=== PATIENT | female | born 1940 | race Hispanic/Latino ===

== ENCOUNTER 2017-08-06 09:53 | Day surgery (SDC) | payer MEDICARE, MEDICAID ==
[2017-08-05 15:03] VITALS: BMI 31.0
--- NOTE | 2017-08-06 06:08 | HP ---
DATE OF ADMISSION: 08/06/2017 HISTORY OF PRESENT ILLNESS: This is a 76-year-old female with chronic abdominal pain . The patient had been seeing me often on last 1 year. Initially, had an EGD done a few months ago and was negative. She was found to have gallstones and was referred to Dr. Rebel Camarillo. She underw ent surgery. Even after surgery, she was having the pain for several months. A subsequent CAT scan done revealed a left renal mass. She underwent left nephrectomy about a month ago at [facility]. The biopsy showed renal cell carcinoma. She had no metastatic disease. The patient j ust complain of abdominal pain. The pain is over the epigastric area. She had nausea. The pain is worse after meals. The patient comes in for an EGD because of the above reason. MEDICAL ILLNESSES: 1. Hypertension. 2. Hyperlipidemia. 3. Chronic anxiety, depression. 4. Degenerative joint disease. 5. Left nephrectomy for renal cell carcinoma. 6. Status post cholecystectomy. ALLERGIES: CEPHALEXIN. PHYSICAL EXAMINATION: VITAL SIGNS: Pulse is 70, blood pressure 120/70. HEENT: Conjunctivae are clear. CARDIOVASCULAR SYSTEM: First and second heart sounds normal. LUNGS: Clear to auscultation. ABDOMEN: Soft to palpate. Abdomen is tender over the epigastric area. There is no rebound or guar ding. No organomegaly or masses. ADMITTING DIAGNOSES: Abdominal pain, chronic in nature. The patient had an EGD several months ago, which was negative. She also had a laparoscopic cholecystectomy and left nephrectomy. Her pain is predominantly over the epigastric area. The patient comes for an EGD.
--- NOTE | 2017-08-06 13:53 | OP ---
DATE OF PROCEDURE: 08/06/2017 SURGEON: Rani Curry M.D. OPERATIVE PROCEDURE: Esophagogastroduodenoscopy. PREOPERATIVE DIAGNOSIS: This is a 76-year-old [place] female with persistent abdominal pain. She is status post laparoscopic cholecystectomy. She also had recent right nephrectomy for renal cell carcinoma. The patient continues to have abdominal pain which is predominantly over the epigastric area. POSTOPERATIVE DIAGNOSES: 1. Mild gastritis. 2. Otherwise, the exam was normal. PROCEDURE IN DETAIL: The patient was placed on her left lateral position and was given sedation by Anesthesia Department. A Pentax video gastroscope under direct vision was passed down the oropharynx, past the gastroesophageal junction , into the stomach and subsequently into the descending duodenum. The esophageal mucosa appeared normal. The GE junction, no pathology seen. Retroflexion failed to show any lesions in the fundus or cardia. The gastric body and gastric antrum showed mild mucosal hyperemia. The duodenal bulb and descending duodenum, no pathology seen. The stomach was decompressed and the scope removed. DISCHARGE PLANNING: This is a 76-year-old female who came in for EGD for abdominal pain, recurrent with mild gastritis, otherwise within normal limits. The patient had EGD at beginning of this year and laparoscopic cholecystectomy subsequently. She also had a nephrectomy a month ago. The patient underwent EGD because of abdominal pain. The EGD showed mild gastritis. DISCHARGE RECOMMENDATIONS: 1. The patient advised to continue all medications as before. 2. Consider trial of anti depressant because of chronic abdominal pain. MTDD
[2017-08-06] MEDS ORDERED: Lidocaine 1% PF 5 ML VIAL ONE (14:42)
[2017-08-06] MEDS ORDERED: Propofol 200 MG/20 ML VIAL ONE (14:42)
== END 2017-08-06 12:33 | disposition home or self-care (01) ==
LOC: SDC 09:53
PROVIDERS: ATTEND Internal Medicine Gastroenterology
PROC: 0DJ08ZZ Inspection of Upper Intestinal Tract, Via Natural or Artificial Opening Endoscopic (ICD-10-PCS; principal; 2017-08-06)
DX: K29.70 Gastritis, unspecified, without bleeding (principal); I10 Essential (primary) hypertension; E78.5 Hyperlipidemia, unspecified; F41.9 Anxiety disorder, unspecified; F32.9 Major depressive disorder, single episode, unspecified; M19.90 Unspecified osteoarthritis, unspecified site; Z88.1 Allergy status to other antibiotic agents; Z79.899 Other long term (current) drug therapy; Z98.1 Arthrodesis status; Z90.49 Acquired absence of other specified parts of digestive tract; Z90.5 Acquired absence of kidney; Z98.890 Other specified postprocedural states
CPT/HCPCS: J2001; J2704

== ENCOUNTER 2018-02-03 19:55 | Emergency (ER) | payer MEDICAID, MEDICARE ==
[2018-02-03] MEDS ORDERED: Acetaminophen 500 MG TAB ONE (20:46)
--- NOTE | 2018-02-03 21:05 | RAD ---
RIGHT FOREARM TWO VIEWS: HISTORY: Fall. Abrasions. COMPARISON: None. FINDINGS: Mild bone demineralization. No fracture. No cortical irregularity. No periosteal reactions. IMPRESSION: No fracture. POS: [facility]
[2018-02-03] MEDS ORDERED: Bacitracin Zinc 1 Packet ONE (21:06)
--- NOTE | 2018-02-03 21:08 | RAD ---
RIGHT HAND TWO VIEWS: HISTORY: Fall. Abrasion. COMPARISON: None. FINDINGS: There are degenerative changes involving the second digit distal interphalangeal joint space, as well as the fifth digit distal interphalangeal joint space. Mild bone demineralization. No fracture. IMPRESSION: No fracture. POS: [facility]
--- NOTE | 2018-02-03 21:36 | CT ---
NONCONTRAST HEAD CT: HISTORY: Trauma. Pain. The patient tripped and fell. COMPARISON: 01/19/2013 TECHNIQUE: A noncontrast head CT is performed from the skull base to the skull vertex. FINDINGS: No parenchymal hemorrhage. No extraaxial hematoma. No midline shift. Basilar cisterns are patent. Age appropriate atrophy. Cortical lara white matter differentiation is preserved. Ventricles and sulci are patent and symmetric. White matter hypodensities due to chronic small vessel ischemic changes are identified. Adequate aeration of the sinuses and mastoid air cells. Cavernous carotid atherosclerosis noted. Th e calvarium is intact. IMPRESSION: 1. No intracranial posttraumatic sequelae. 2. Age appropriate atrophy. 3. Chronic small vessel ischemic changes of the white matter. POS: [facility]
== END 2018-02-03 22:09 | disposition home or self-care (01) ==
LOC: ERS 19:55
DX: S63.501A Unspecified sprain of right wrist, initial encounter (principal); S00.31XA Abrasion of nose, initial encounter; S50.812A Abrasion of left forearm, initial encounter; I10 Essential (primary) hypertension; F32.9 Major depressive disorder, single episode, unspecified; W01.0XXA Fall on same level from slipping, tripping and stumbling without subsequent striking against object, initial encounter; Y92.481 Parking lot as the place of occurrence of the external cause
CPT/HCPCS: 70450

== ENCOUNTER 2018-03-17 14:34 | Outpatient (CLI) | payer MEDICARE | END 2018-03-17 14:35 | disposition home or self-care (01) | LOC: BICMAMMO 14:34 | PROVIDERS: ATTEND Family Medicine | DX: Z12.31 Encounter for screening mammogram for malignant neoplasm of breast (principal) | CPT/HCPCS: 77063; 77067 ==

== ENCOUNTER 2018-04-10 09:43 | Outpatient (CLI) | payer MEDICARE ==
[2018-04-10] MEDS ORDERED: ISOVUE-370 76%-LOCM 1 ML ONE (09:47)
== END 2018-04-10 09:44 | disposition home or self-care (01) ==
LOC: BICCT 09:43
PROVIDERS: ATTEND Internal Medicine Gastroenterology
DX: K30 Functional dyspepsia (principal); R10.84 Generalized abdominal pain; R14.0 Abdominal distension (gaseous); Z80.0 Family history of malignant neoplasm of digestive organs; I70.8 Atherosclerosis of other arteries; D35.01 Benign neoplasm of right adrenal gland; K57.30 Diverticulosis of large intestine without perforation or abscess without bleeding; Z90.49 Acquired absence of other specified parts of digestive tract; Z90.5 Acquired absence of kidney
CPT/HCPCS: 74174

== ENCOUNTER 2018-04-26 20:09 | Emergency (ER) | payer MEDICARE ==
[~2018-04-26 20:09] MED LIST: ISOVUE-370 76%-LOCM 1 ML ONE
[2018-04-26 20:42] LABS: #Eosinphils 0.2 thou/uL (0.0-0.7); #Lymphocytes 1.9 thou/uL (1.20-3.40); #Monocytes 0.5 thou/uL (0.11-0.59); #Neutrophils 2.3 thou/uL (1.40-6.50); %Basophils 0.4 % (0.0-1.0); %Eosinophils 4.4 % (0.0-10.0); %Lymphocytes 38.2 % (21.0-51.0); %Monocytes 9.7 % (0.0-10.0); %Neutrophils 47.3 % (42.0-75.0); Hemoglobin 12.6 g/dL (12.0-16.0); Mean Corpuscular HGB CONC 33.6 g/dL (32.0-36.0); Mean Corpuscular Hemoglobin 33.6 pg (27.0-31.0); Mean Corpuscular Volume 99.9 fL (78.0-98.0); Mean Platelet Volume 7.6 fL (7.4-10.4); Platelet Count 215 thou/uL (130-400); Red Blood Cell (RBC) Count 3.76 mill/uL (4.20-5.40); White Blood Cell (WBC) Count 4.8 thou/uL (4.8-10.8)
[2018-04-26] MEDS ORDERED: Lidocaine Viscous Sol 2% 15 ml UD Cup ONE (20:59)
[2018-04-26] MEDS ORDERED: Mag-Al 1200 mg/1200 mg/30 ML UDCUP ONE (20:59)
[2018-04-26 21:05] LABS: ALT (SGPT) 12 U/L (8-55); AST (SGOT) 23 U/L (5-34); Albumin 4.4 g/dL (3.4-4.8); Alkaline Phosphatase 94 U/L (40-150); Anion Gap 14 mmol/L (10-20); BUN (Urea Nitrogen) 16 mg/dL (9.8-20.1); Bilirubin, Total 0.4 mg/dL (0.2-1.2); CK (CPK) 52 U/L (29-168); Calc. Creatinine Clearance 0 mL/min (70-130); Calcium 9.6 mg/dL (7.8-10.44); Carbon Dioxide 25 mmol/L (23-31); Chloride 103 mmol/L (98-107); Estimated GFR-MDRD 44; Globulin 3.1 g/dL (2.4-3.5); Glucose 92 mg/dL (83-110); Potassium 4.5 mmol/L (3.5-5.1); Protein, Total 7.5 g/dL (6.0-8.3); Sodium 137 mmol/L (136-145)
[2018-04-26 21:26] LABS: CKMB 0.7 ng/mL (0-6.6); Troponin I Less than 0.010 ng/mL (< 0.028)
[2018-04-26] MEDS ORDERED: Dexamethasone 10 MG/ML VIAL ONE (22:37)
--- NOTE | 2018-04-27 08:58 | RAD ---
AP VIEW CHEST: 04/26/18 HISTORY: Shortness of breath. AP view chest is obtained on 04/26/18. Comparison made to previous exam from 05/31/17. AP view chest demonstrates the lungs to be well aerated. No evidence of active intrathoracic disease seen. No evidence of effusions, pneumonia or pneumothorax seen. IMPRESSION: Unremarkable AP view chest. POS: [facility]
--- NOTE | 2018-04-27 09:34 | CT ---
CONTRAST ENHANCED CT IMAGES SOFT TISSUE NECK: 04/26/18 HISTORY: Swallowing difficulties. Contrast enhanced CT of the soft tissue neck is obtained after administration of IV contrast. Mild right frontal sinus mucosal thickening is seen. The rest of the paranasal sinuses are well aerat ed. Mild left to right nasal septal deviation is seen. No definite evidence of soft tissue neck masses or lesions seen. The patient has a lower cervical ACD F. No evidence of prevertebral soft tissue swelling seen. No evidence of lymphadenopathy seen. Mild to moderate bilateral distal common and proximal internal carotid artery calcifications seen. Some minimal areas of calcifications seen in the right and left thyroid lobes. No definite evidence of pharyngeal mucosal lesions seen. There does appear to be some right to left vocal cord displacement. Correlate with direct visualizati on. IMPRESSION: Right to left vocal cord displacement possibly representing a right vocal cord mass or paralysis. Cor relate with direct visualization. POS: [facility]
== END 2018-04-26 22:46 | disposition home or self-care (01) ==
LOC: ERS 20:09
DX: J02.9 Acute pharyngitis, unspecified (principal); R13.10 Dysphagia, unspecified; I10 Essential (primary) hypertension; F32.9 Major depressive disorder, single episode, unspecified; Z79.899 Other long term (current) drug therapy
CPT/HCPCS: 70491; 71045; 80053; 82553; 84484; 85025; 93005; J1100

== ENCOUNTER 2018-05-07 10:28 | Outpatient (CLI) | payer MEDICARE ==
--- NOTE | 2018-05-08 10:58 | RAD ---
MODIFIED BARIUM SWALLOW: HISTORY: Dysphagia, pharyngoesophageal phase (R13.14). Feeding difficulties (R63.9). Other, IVC paralysis. COMPARISON: None. TECHNIQUE/FINDINGS: The exam was performed by the speech pathologist. The radiologist was not present. Multiple consist ency contrast was given by the speech pathologist. No aspiration or penetration. IMPRESSION: Fluoroscopy for the speech pathologist. Please see their report for detailed findings. POS: [facility]
== END 2018-05-07 10:29 | disposition home or self-care (01) ==
PROVIDERS: ATTEND Otolaryngology Plastic Surgery within the Head & Neck
DX: I69.891 Dysphagia following other cerebrovascular disease (principal); R13.14 Dysphagia, pharyngoesophageal phase; R63.3 Feeding difficulties; J38.01 Paralysis of vocal cords and larynx, unilateral
CPT/HCPCS: 74230; G8996-GN-CI; G8997-GN-CI; G8998-GN-CJ

== ENCOUNTER 2018-05-21 06:11 | Day surgery (SDC) | payer MEDICARE ==
[2018-05-20 15:14] VITALS: BMI 25.0
[2018-05-21] MEDS ORDERED: EPINEPHrine 1 MG/ML AMP ONE (06:44)
[2018-05-21 06:45] LABS: Hemoglobin 11.9 g/dL (12.0-16.0)
[2018-05-21 07:04] LABS: Anion Gap 13 mmol/L (10-20); BUN (Urea Nitrogen) 19 mg/dL (9.8-20.1); Calc. Creatinine Clearance 39 mL/min (70-130); Calcium 9.9 mg/dL (7.8-10.44); Carbon Dioxide 26 mmol/L (23-31); Chloride 105 mmol/L (98-107); Estimated GFR-MDRD 47; Glucose 94 mg/dL (83-110); Potassium 3.9 mmol/L (3.5-5.1); Sodium 140 mmol/L (136-145)
[2018-05-21] MEDS ORDERED: Midazolam HCl 2 mg/2 ml Vial ONE (08:02)
[2018-05-21] MEDS ORDERED: Fentanyl 100 MCG/2 ML VIAL ONE (08:02)
[2018-05-21] MEDS ORDERED: SUGAMMADEX SODIUM 200 MG/2 ML VIAL ONE (08:34)
[2018-05-21] MEDS ORDERED: Promethazine HCl 25 MG/ML VIAL ONE (09:50)
[2018-05-21] MEDS ORDERED: Ondansetron ODT 4 MG TAB ONE (12:05)
[2018-05-21] MEDS ORDERED: Dexamethasone 20 MG/5 ML VIAL ONE (13:08)
[2018-05-21] MEDS ORDERED: Glycopyrrolate 0.2 MG/ML 5 ML SYRINGE ONE (13:08)
[2018-05-21] MEDS ORDERED: Ondansetron HCl/PF 4 MG/2 ML Vial ONE (13:08)
--- NOTE | 2018-05-22 11:28 | OP ---
PREOPERATIVE DIAGNOSES: 1. Right true vocal cord paralysis. 2. Dysphonia. POSTOPERATIVE DIAGNOSES: 1. Right true vocal cord paralysis. 2. Dysphonia. PROCEDURES: 1. Microsuspension direct laryngoscopy. 2. Right true vocal cord Prolaryn laryngoplasty. SURGEON: Willie Melendez M.D. ESTIMATED BLOOD LOSS: 0 mL COMPLICATIONS: None. ANESTHESIA: GETA. PROCEDURE IN DETAIL: The patient taken to the operating room and placed supine on the table. Genera l endotracheal anesthesia was obtained using a Brittany jet ventilation tube. Following this, the sh oulder roll was gently placed. Great care was taken to protect the neck. The patient had previous a nterior cervical disk fusion surgery. Following this, the Dedo laryngoscope was introduced into the oral cavity and oral cavity and oropharynx were examined and showed no concerning mucosal lesions. F ollowing this, the piriform sinuses, vallecula and post-cricoid mucosa as well as the true vocal cord s and subglottic area were all visualized and were noted to be within normal limits. Following this, the patient was placed in suspension showing the true vocal cords and the airway. Following this, u sing the operating microscope with 400 mm lens Prolaryn Plus was used and it was guided under microsc opic guidance into just lateral to the thyroarytenoid muscle on the right true vocal cord, 0.3 mL of injection was made into 2 areas along this right true vocal cord. There is no swelling or hematoma. The patient tolerated the procedure well and was taken to recovery room in stable condition.
== END 2018-05-21 12:45 | disposition home or self-care (01) ==
LOC: SDC 06:11
PROVIDERS: ATTEND Otolaryngology Plastic Surgery within the Head & Neck
PROC: 0CQ Mouth and Throat, Repair (ICD-10-PCS; principal; 2018-05-21)
DX: J38.01 Paralysis of vocal cords and larynx, unilateral (principal); I10 Essential (primary) hypertension; E78.00 Pure hypercholesterolemia, unspecified; D64.9 Anemia, unspecified; K21.9 Gastro-esophageal reflux disease without esophagitis; Z79.82 Long term (current) use of aspirin; Z79.899 Other long term (current) drug therapy; Z88.1 Allergy status to other antibiotic agents
CPT/HCPCS: 36415; 80048; 85014; 85018; 93005; 93010; 96374; J0171; J1100; J2250; J2405; J2550; J3010; Q0162

== ENCOUNTER 2018-09-10 09:43 | Outpatient (CLI) | payer MEDICARE ==
--- NOTE | 2018-09-10 13:42 | MRI ---
MRI BRAIN WITHOUT CONTRAST: Date: 09/10/18 HISTORY: Headache. FINDINGS: Comparison made with exam of 07/28/15. Changes of chronic small vessel ischemic disease are again seen in the periventricular and subcortica l white matter. The ventricular size is appropriate and the basilar cisterns are patent. No restricte d diffusion is seen. No evidence of infarct, hemorrhage, midline shift, or abnormal extra-axial fluid collections is noted. There is mild mucosal disease in the paranasal sinuses. IMPRESSION: Extensive chronic small vessel ischemic disease. No evidence of acute intracranial process. POS: [facility]
== END 2018-09-10 09:44 | disposition home or self-care (01) ==
LOC: BICMRI 09:43
PROVIDERS: ATTEND Family Medicine
DX: R51 Headache (principal); I67.9 Cerebrovascular disease, unspecified
CPT/HCPCS: 70551

== ENCOUNTER 2018-10-16 14:38 | Outpatient (CLI) | payer MEDICARE ==
--- NOTE | 2018-10-16 17:32 | MRI ---
MRI CERVICAL SPINE: 10/16/2018 HISTORY: Cervical pain with radiation to the back of the head. Cervical stenosis of the spinal canal. COMPARISON: 09/26/2015 TECHNIQUE: Multiplanar, multisequence MR imaging of the cervical spine obtained without contrast. FINDINGS: Since the prior examination, there has been placement of anterior diskectomy and fusion hardware at C 4-C5 and C5-C6. Associated artifact from this hardware limits detailed assessment. There is no significant anterolisthesis or retrolisthesis present. No focal prevertebral soft tissue abnormality. Stable mild degenerative change at the atlantoaxial interspace present. C2-C3: Mild left-sided facet hypertrophy noted. No significant central canal or neural foraminal st enosis. C3-C4: There is a stable central disk protrusion effacing the ventral thecal sac and abutting the ve ntral aspect of the cord with mild stable central canal stenosis. Stable bilateral mild facet and un covertebral osteophyte formation. No significant neural foraminal stenosis noted on either side. C4-C5: Evaluation is limited secondary to streak artifact from hardware. No obvious central canal s tenosis or severe neural foraminal stenosis. C5-C6: Evaluation limited secondary to artifact from hardware. Probable mild bilateral neural aditya inal stenosis. No obvious central canal stenosis. C6-C7: There is disk space narrowing, disk desiccation, and mild disk bulge with mild central canal stenosis. Probable bilateral mild/moderate neural foraminal stenosis, left greater than right, limit ed in assessment on the basis of hardware artifact. C7-T1: Bilateral facet hypertrophy noted, left greater than right. Moderate left and mild right belgica ral foraminal stenosis. Minimal disk bulge present with no significant central canal stenosis. No focal area of signal abnormality is identified within the cervical cord. The sagittal STIR imaging demonstrates no focal area of osseous marrow edema. IMPRESSION: Postoperative and degenerative change noted within the cervical spine, not optimally assessed on this examination secondary to streak artifact from the above described hardware. CT myelogram of the cer vical spine may be beneficial. POS: [facility]
== END 2018-10-16 14:39 | disposition home or self-care (01) ==
LOC: BICMRI 14:38
PROVIDERS: ATTEND Nurse Practitioner Family
DX: M48.02 Spinal stenosis, cervical region (principal); M47.812 Spondylosis without myelopathy or radiculopathy, cervical region; Z98.890 Other specified postprocedural states
CPT/HCPCS: 72141

== ENCOUNTER 2018-11-04 13:02 | Outpatient (CLI) | payer MEDICARE ==
--- NOTE | 2018-11-04 15:02 | ULT ---
BILATERAL LOWER EXTREMITY ARTERIAL DOPPLER EXAMINATION: HISTORY: Peripheral artery disease. Atherosclerosis. FINDINGS: RIGHT SIDE PEAK SYSTOLIC VELOCITY COMMON FEMORAL ARTERY 101 cm per second PROFUNDA FEMORAL ARTERY: 69 cm per second PROXIMAL SUPERFICIAL FEMORAL ARTERY: 100 cm per second MID: 113 cm per second DISTAL SUPERFICIAL FEMORAL ARTERY: 107 cm per second POPLITEAL: 77 cm per second ANTERIOR TIBIAL: 61 cm per second POSTERIOR TIBIAL: 50 cm per second DORSALIS PEDIS: 77 cm per second LEFT SIDE PEAK SYSTOLIC VELOCITY COMMON FEMORAL ARTERY 96 cm per second PROFUNDA FEMORAL ARTERY: 67 cm per second PROXIMAL SUPERFICIAL FEMORAL ARTERY: 83 cm per second MID: 119 cm per second DISTAL SUPERFICIAL FEMORAL ARTERY 82 cm per second POPLITEAL: 78 cm per second ANTERIOR TIBIAL: 90 cm per second POSTERIOR TIBIAL: 54 cm per second DORSALIS PEDIS: 62 cm per second IMPRESSION: Findings that suggest a mild to moderate area of narrowing of the junction of the distal superficial femoral artery and popliteal artery on the right, and mild to moderate narrowing of the mid to distal superficial femoral artery on the left. POS: [facility]
== END 2018-11-04 13:03 | disposition home or self-care (01) ==
LOC: ULT 13:02
PROVIDERS: ATTEND Family Medicine
DX: I70.203 Unspecified atherosclerosis of native arteries of extremities, bilateral legs (principal)
CPT/HCPCS: 93923

== ENCOUNTER 2019-05-13 12:58 | Outpatient (CLI) | payer MEDICARE ==
--- NOTE | 2019-05-13 15:14 | MRI ---
MRI OF RIGHT KNEE PERFORMED WITHOUT CONTRAST ENHANCEMENT: 05/13/19 HISTORY: Medial knee pain. No history of previous surgery. The anterior as well as posterior cruciate ligaments are intact. There is increased signal change within the posterior horn and body region of the medial meniscus com patible with internal mucoid degeneration. I do not see a definitive articular surface tear. The late ral meniscus shows less pronounced changes but again with some mucoid degeneration. The junction of t he anterior horn and body region of the lateral meniscus is somewhat truncated in appearance but this can be an area of some moderate variability. The medial and lateral collateral ligaments and iliotibial band regions are unremarkable. The patella r articular cartilage is intact. The medial and lateral patellar retinaculum and quadriceps and santiago lar tendons are normal. There is a small joint effusion seen. IMPRESSION: No evidence of any meniscal or cruciate ligament injury. POS: [facility]
== END 2019-05-13 12:59 | disposition home or self-care (01) ==
LOC: BICMRI 12:58
PROVIDERS: ATTEND Orthopaedic Surgery
DX: S83.241A Other tear of medial meniscus, current injury, right knee, initial encounter (principal)

== ENCOUNTER 2019-09-15 12:19 | Outpatient (CLI) | payer MEDICARE ==
--- NOTE | 2019-09-15 12:57 | MMO ---
Bilateral MAMMO Bilat Screen [facility]. CLINICAL HISTORY: Patient is 78 years old and is seen for screening. The patient has no family history of breast cancer. The patient has no personal history of cancer. VIEWS: The views performed were: bilateral craniocaudal with tomosynthesis and bilateral mediolateral oblique with tomosynthesis. FILMS COMPARED: The present examination has been compared to prior imaging studies performed at [facility] on 12/08/2013, 12/27/2014, 03/13/2017 and 03/17/2018. This study has been interpreted with the assistance of computer-aided detection. MAMMOGRAM FINDINGS: There are scattered fibroglandular densities. There are stable benign appearing calcifications seen in both breasts. There are also vascular calcifications. There are no suspicious masses, suspicious calcifications, or new areas of architectural distortion. IMPRESSION: THERE IS NO MAMMOGRAPHIC EVIDENCE OF MALIGNANCY. A ROUTINE FOLLOW-UP MAMMOGRAM IN 1 YEAR IS RECOMMENDED. THE RESULTS OF THIS EXAM WERE SENT TO THE PATIENT. ACR BI-RADS Category 2 - Benign finding MAMMOGRAPHY NOTE: 1. A negative mammogram report should not delay a biopsy if a dominant of clinically suspicious mass is present. 2. Approximately 10% to 15% of breast cancers are not detected by mammography. 3. Adenosis and dense breasts may obscure an underlying neoplasm. Reported by: JANUSZ RODRIGUEZ MD Electonically Signed: [id number]
== END 2019-09-15 12:20 | disposition home or self-care (01) ==
LOC: BICMAMMO 12:19
PROVIDERS: ATTEND Specialist
DX: Z12.31 Encounter for screening mammogram for malignant neoplasm of breast (principal)
CPT/HCPCS: 77063; 77067

== ENCOUNTER 2020-08-01 11:55 | Outpatient (CLI) | payer MEDICARE ==
--- NOTE | 2020-08-01 12:15 | RAD ---
EXAM: 4 views of the right knee HISTORY: Knee pain COMPARISON: None FINDINGS: No knee effusion is seen. There is no evidence of acute fracture or dislocation. No signifi cant degenerative changes are seen. No soft tissue swelling is present. IMPRESSION: No evidence of acute osseous abnormality.
== END 2020-08-01 11:56 | disposition home or self-care (01) ==
LOC: BICRAD 11:55
PROVIDERS: ATTEND Specialist
DX: M25.561 Pain in right knee (principal)

== ENCOUNTER 2021-03-06 14:48 | Outpatient (CLI) | payer MEDICARE | END 2021-03-06 14:49 | disposition home or self-care (01) | LOC: BICRAD 14:48 | PROVIDERS: ATTEND Internal Medicine Cardiovascular Disease | DX: R07.9 Chest pain, unspecified (principal) | CPT/HCPCS: 71046 ==

== ENCOUNTER 2022-06-10 17:29 | Inpatient (IN) | payer MEDICARE ==
[~2022-06-10 17:29] MED LIST changes: -ISOVUE-370 76%-LOCM 1 ML ONE; +Iopamidol-370 76% 500 ML 1 ML ONE
[2022-06-10 18:32] LABS: #Eosinphils 0.1 thou/uL (0.0-0.7); #Lymphocytes 2.1 thou/uL (1.20-3.40); #Monocytes 0.7 thou/uL (0.11-0.59); #Neutrophils 4.1 thou/uL (1.40-6.50); %Basophils 0.2 % (0.0-1.0); %Eosinophils 1.5 % (0.0-10.0); %Monocytes 9.5 % (0.0-10.0); %Neutrophils 58.8 % (42.0-75.0); Hemoglobin 10.6 g/dL (12.0-16.0); Mean Corpuscular HGB CONC 33.3 g/dL (32.0-36.0); Mean Corpuscular Hemoglobin 33.4 pg (27.0-31.0); Mean Platelet Volume 8.8 fL (7.4-10.4); Platelet Count 237 thou/uL (130-400); RBC Distribution Width 14.1 % (11.5-14.5); Red Blood Cell (RBC) Count 3.17 mill/uL (4.20-5.40)
[2022-06-10 18:52] LABS: ALT (SGPT) 11 U/L (8-55); AST (SGOT) 19 U/L (5-34); Albumin 4.4 g/dL (3.4-4.8); Alkaline Phosphatase 71 U/L (40-110); Anion Gap 17 mmol/L (10-20); BUN (Urea Nitrogen) 20 mg/dL (9.8-20.1); Bilirubin, Total 0.6 mg/dL (0.2-1.2); CK (CPK) 53 U/L (29-168); Calc. Creatinine Clearance 0 mL/min (70-130); Calcium 9.3 mg/dL (7.8-10.44); Carbon Dioxide 19 mmol/L (23-31); Chloride 107 mmol/L (98-107); Estimated GFR 46; Glucose 93 mg/dL (83-110); Lipase 39 U/L (8-78); Potassium 4.1 mmol/L (3.5-5.1); Protein, Total 7.4 g/dL (5.8-8.1); Sodium 139 mmol/L (136-145)
[2022-06-10 19:02] LABS: Bilirubin Negative (Negative); Blood, Urine Negative (Negative); Clarity Clear (Clear); Glucose, Urine (Dipstick) Normal (Negative); Ketone, Urine Negative (Negative); Leukocyte Negative Leu/uL (Negative); Nitrite Negative (Negative); Protein, Urine (Dipstick) 10 mg/dL (Neg-Trace); Specific Gravity, Urine 1.006 (1.002-1.036); Urobilinogen Normal mg/dL (Less than 2)
[2022-06-10] MEDS ORDERED: Morphine 4 MG/ML VIAL ONE (21:43)
[2022-06-10] MEDS ORDERED: Ketorolac Tromethamine 30 MG/ML VIAL ONE (21:43)
[2022-06-10] MEDS ORDERED: Ondansetron PF 4 MG/2 ML Vial ONE (21:43)
[2022-06-10 22:41] LABS: Troponin I 0.505 ng/mL (< 0.028)
[2022-06-10] MEDS ORDERED: Aspirin 325 mg Enteric Coated Tablet PO SCH (22:45)
[2022-06-11 01:12] VITALS: BMI 25.5
[2022-06-11 05:23] LABS: Critical Call Chem Troponin I RESULT DECREASING; Troponin I 0.485 ng/mL (< 0.028)
[2022-06-11] MEDS ORDERED: Nitroglycerin 0.4 MG TAB (25 Tab Bottle) SL PRN (07:39)
[2022-06-11] MEDS ORDERED: Aspirin 325 MG TAB PO SCH (07:45)
[2022-06-11] MEDS: Sodium Chloride 0.9% 1,000 ML IV SCH (08:47)
[2022-06-11] MEDS: cloNIDine 0.1 MG TAB PO SCH ×2 (08:47→21:00)
[2022-06-11 12:11] LABS: Anion Gap 14 mmol/L (10-20); BUN (Urea Nitrogen) 20 mg/dL (9.8-20.1); Calc. Creatinine Clearance 36 mL/min (70-130); Calcium 9.2 mg/dL (7.8-10.44); Carbon Dioxide 20 mmol/L (23-31); Chloride 109 mmol/L (98-107); Estimated GFR 50; Glucose 85 mg/dL (83-110); Potassium 4.5 mmol/L (3.5-5.1); Sodium 138 mmol/L (136-145)
[2022-06-11] MEDS: Nitroglycerin 2% Ointment 1 INCH/1 GM Packet TOP SCH ×2 (13:13→21:19)
[2022-06-11] MEDS ORDERED: Acetaminophen 325 MG TAB PO PRN (19:44)
[2022-06-11] MEDS ORDERED: Rosuvastatin 20 MG TAB PO SCH (21:00)
[2022-06-12] MEDS: Sodium Chloride 0.9% 1,000 ML IV SCH ×2 (01:45→09:04)
[2022-06-12 05:19] LABS: #Eosinphils 0.1 thou/uL (0.0-0.7); #Lymphocytes 1.6 thou/uL (1.20-3.40); #Monocytes 0.7 thou/uL (0.11-0.59); %Basophils 0.3 % (0.0-1.0); %Eosinophils 2.1 % (0.0-10.0); %Lymphocytes 29.6 % (21.0-51.0); %Monocytes 12.6 % (0.0-10.0); %Neutrophils 55.4 % (42.0-75.0); Hemoglobin 9.5 g/dL (12.0-16.0); Mean Corpuscular Hemoglobin 31.8 pg (27.0-31.0); Mean Corpuscular Volume 99.4 fL (78.0-98.0); Mean Platelet Volume 8.8 fL (7.4-10.4); Platelet Count 209 thou/uL (130-400); RBC Distribution Width 14.1 % (11.5-14.5); Red Blood Cell (RBC) Count 2.99 mill/uL (4.20-5.40); White Blood Cell (WBC) Count 5.4 thou/uL (4.8-10.8)
[2022-06-12 05:37] LABS: Anion Gap 14 mmol/L (10-20); BUN (Urea Nitrogen) 26 mg/dL (9.8-20.1); Calc. Creatinine Clearance 38 mL/min (70-130); Calcium 8.5 mg/dL (7.8-10.44); Carbon Dioxide 16 mmol/L (23-31); Chloride 112 mmol/L (98-107); Estimated GFR 54; Glucose 79 mg/dL (83-110); Potassium 3.9 mmol/L (3.5-5.1); Sodium 138 mmol/L (136-145)
[2022-06-12] MEDS: Nitroglycerin 2% Ointment 1 INCH/1 GM Packet TOP SCH (07:25)
[2022-06-12 08:22] VITALS: TEMP 98.3
[2022-06-12 08:53] LABS: Cardiac Risk 2.8 (Less than 4.5)
[2022-06-12] MEDS ORDERED: Aspirin 325 MG TAB PO SCH (09:00)
[2022-06-12] MEDS ORDERED: Docusate Calcium (SURFAK) 240 MG CAP PO SCH ×2 (11:30→21:00)
[2022-06-12 11:48] VITALS: BP 156/69
== END 2022-06-12 15:09 | disposition home health service (06) | DRG 281 ==
LOC: ERS 17:29 → 2SW 20:24 → OBSVTOIN 06-11 08:07
PROVIDERS: ADMIT Specialist; ATTEND Specialist
DX: I21.4 Non-ST elevation (NSTEMI) myocardial infarction (principal); I13.0 Hypertensive heart and chronic kidney disease with heart failure and stage 1 through stage 4 chronic kidney disease, or unspecified chronic kidney disease; Z20.822 Contact with and (suspected) exposure to COVID-19; F03.90 Unspecified dementia, unspecified severity, without behavioral disturbance, psychotic disturbance, mood disturbance, and anxiety; E78.5 Hyperlipidemia, unspecified; N18.30 Chronic kidney disease, stage 3 unspecified; D63.1 Anemia in chronic kidney disease; F32.A Depression, unspecified; I50.9 Heart failure, unspecified; Z88.1 Allergy status to other antibiotic agents; Z90.49 Acquired absence of other specified parts of digestive tract
CPT/HCPCS: 36415; 71045; 71275; 80048; 80053; 80061; 81003; 82550; 83690; 83735; 83880; 84443; 84484; 85025; 85379; 93005; 93010; 93306; G0378; J1885; J2270; J2405; J7050; Q9967; U0003; U0005

== ENCOUNTER 2022-08-16 08:55 | Outpatient (CLI) | payer MEDICARE | END 2022-08-16 08:56 | disposition home or self-care (01) | LOC: SCSMRI 08:55 | PROVIDERS: ATTEND Specialist | DX: M54.2 Cervicalgia (principal); M26.602 Left temporomandibular joint disorder, unspecified; M26.643 Arthritis of bilateral temporomandibular joint; S03.03XA Dislocation of jaw, bilateral, initial encounter; M48.02 Spinal stenosis, cervical region; M48.03 Spinal stenosis, cervicothoracic region | CPT/HCPCS: 70336; 72141 ==

== ENCOUNTER 2023-07-03 14:23 | Outpatient (CLI) | payer MEDICARE | END 2023-07-03 14:24 | disposition home or self-care (01) | LOC: BICRAD 14:23 | PROVIDERS: ATTEND Physician Assistant Medical | DX: D50.9 Iron deficiency anemia, unspecified (principal); R10.9 Unspecified abdominal pain; K59.00 Constipation, unspecified; R14.3 Flatulence | CPT/HCPCS: 74019 ==

== ENCOUNTER 2024-08-11 17:32 | Inpatient (IN) | payer MEDICARE ==
[~2024-08-11 17:32] MED LIST changes: -Iopamidol-370 76% 500 ML 1 ML ONE; +Iopamidol-370 76% 500 ML MDV (1 ML CHARGE) ONE
[2024-08-11 18:01] LABS: #Basophils Less than 0.03 10x3/uL (0.0-0.2); #Eosinophils Less than 0.03 10x3/uL (0.0-0.7); %Basophils 0.2 % (0.0-1.0); %Eosinophils 0.1 % (0.0-10.0); %Lymphocytes 8.1 % (21.0-51.0); %Monocytes 8.4 % (0.0-10.0); %Neutrophils 82.7 % (42.0-75.0); Hematocrit 41.5 % (36.0-47.0); Hemoglobin 13.8 g/dL (12.0-16.0); Mean Corpuscular HGB CONC 33.3 g/dL (32.0-36.0); Mean Corpuscular Hemoglobin 34.5 pg (27.0-31.0); Mean Corpuscular Volume 103.8 fL (78.0-98.0); Mean Platelet Volume 10.6 fL (7.4-10.4); Platelet Count 220 10x3/uL (130-400); RBC Distribution Width 13.5 % (11.5-14.5)
[2024-08-11 18:19] LABS: CK (CPK) 336 U/L (29-168); Magnesium 2.2 mg/dL (1.6-2.6)
[2024-08-11 18:22] LABS: INR-International Normal Ratio 1.1; PTT 26.4 sec (22.9-36.1); Prothrombin Time 14.3 sec (12.0-14.7)
[2024-08-11 18:25] LABS: Troponin I 0.132 ng/mL (< 0.028)
[2024-08-11 18:27] LABS: ALT (SGPT) 18 U/L (8-55); AST (SGOT) 39 U/L (5-34); Albumin 3.9 g/dL (3.4-4.8); Alkaline Phosphatase 74 U/L (40-110); Anion Gap 15 mmol/L (10-20); BUN (Urea Nitrogen) 26 mg/dL (9.8-20.1); Bilirubin, Total 1.1 mg/dL (0.2-1.2); Calc. Creatinine Clearance 0 mL/min (70-130); Calcium 9.8 mg/dL (7.8-10.44); Carbon Dioxide 19 mmol/L (23-31); Chloride 102 mmol/L (98-107); Estimated GFR 43; Globulin 3.7 g/dL (2.4-3.5); Glucose 118 mg/dL (83-110); Potassium 4.4 mmol/L (3.5-5.1); Protein, Total 7.6 g/dL (5.8-8.1); Sodium 132 mmol/L (136-145)
[2024-08-11 18:49] LABS: Bacteria/HPF None Seen HPF (None Seen); Bilirubin Negative (Negative); Blood, Urine Negative (Negative); CAUTI Indications for Culture Alt mental st,lethar; Clarity Clear (Clear); Glucose, Urine (Dipstick) Normal (Negative); Ketone, Urine Negative (Negative); Leukocyte Negative Leu/uL (Negative); Nitrite Negative (Negative); Protein, Urine (Dipstick) 70 mg/dL (Neg-Trace); RBC/HPF 0-3 HPF (0-3); Squamous Epithelial None Seen HPF (0-3); Urobilinogen Normal mg/dL (Less than 2); WBC/HPF 0-3 HPF (0-3); pH, Urine 5.5 (5.0-9.0)
[2024-08-11 18:53] LABS: Urine Culture Reflex No No
[2024-08-11] MEDS ORDERED: Aspirin Chewable 81 MG TAB ONE (19:09)
[2024-08-11 21:00] LABS: Lactic Acid 3.57 mmol/L (0.5-2.2)
[2024-08-11] MEDS ORDERED: Glucagon 1 MG/ML KIT IM PRN (21:07)
[2024-08-11] MEDS ORDERED: Ipratropium/Albuterol 3 ML NEB NEB PRN (21:07)
[2024-08-11] MEDS ORDERED: Morphine 2 MG/ML VIAL SLOW IVP PRN (21:07)
[2024-08-11] MEDS ORDERED: Dextrose 50% Abboject 50 ML SYRINGE SLOW IVP PRN (21:07)
[2024-08-11] MEDS ORDERED: traMADol HCl 50 MG TAB PO PRN (21:07)
[2024-08-11] MEDS ORDERED: Acetaminophen 325 MG TAB PO PRN (21:07)
[2024-08-11] MEDS ORDERED: hydrALAZINE 20 MG/ML VIAL SLOW IVP PRN (21:07)
[2024-08-11] MEDS ORDERED: Dextrose 5% in Water 1,000 ML IV PRN (21:07)
[2024-08-11] MEDS ORDERED: Rib Fracture Protocol PO SCH (21:15)
[2024-08-11] MEDS ORDERED: Cyclobenzaprine 10 MG TAB PO PRN (22:00)
[2024-08-12] MEDS: Ipratropium/Albuterol 3 ML NEB NEB SCH (02:22)
[2024-08-12 03:11] VITALS: BMI 27.4
[2024-08-12] MEDS: Lactated Ringer's 1,000 ML IV SCH (03:20)
[2024-08-12 04:48] LABS: #Basophils 0.03 10x3/uL (0.0-0.2); #Eosinophils Less than 0.03 10x3/uL (0.0-0.7); %Basophils 0.3 % (0.0-1.0); %Eosinophils 0.2 % (0.0-10.0); %Lymphocytes 14.6 % (21.0-51.0); %Monocytes 12.4 % (0.0-10.0); %Neutrophils 72.1 % (42.0-75.0); Hemoglobin 11.9 g/dL (12.0-16.0); Mean Corpuscular HGB CONC 33.1 g/dL (32.0-36.0); Mean Corpuscular Hemoglobin 34.2 pg (27.0-31.0); Mean Corpuscular Volume 103.4 fL (78.0-98.0); Mean Platelet Volume 10.9 fL (7.4-10.4); Platelet Count 178 10x3/uL (130-400); RBC Distribution Width 13.7 % (11.5-14.5); Red Blood Cell (RBC) Count 3.48 mill/uL (4.20-5.40)
[2024-08-12 04:57] LABS: Anion Gap 15 mmol/L (10-20); BUN (Urea Nitrogen) 25 mg/dL (9.8-20.1); Calc. Creatinine Clearance 37 mL/min (70-130); Carbon Dioxide 18 mmol/L (23-31); Chloride 104 mmol/L (98-107); Estimated GFR 52; Glucose 110 mg/dL (83-110); Potassium 4.5 mmol/L (3.5-5.1); Sodium 132 mmol/L (136-145)
[2024-08-12] MEDS: traMADol HCl 50 MG TAB PO SCH (05:06)
[2024-08-12] MEDS: Ibuprofen 200 MG TAB PO SCH (06:24)
[2024-08-12] MEDS: Acetaminophen 500 MG TAB PO SCH (06:26)
[2024-08-12 08:33] LABS: Troponin I 0.101 ng/mL (< 0.028)
[2024-08-12] MEDS: Pantoprazole DR 40 MG TAB PO SCH (08:50)
[2024-08-12] MEDS: Enoxaparin 30 MG (0.3 mL) SYRINGE SC SCH (08:50)
[2024-08-12] MEDS: Gabapentin 100 MG CAP PO SCH (08:50)
[2024-08-12] MEDS: Rosuvastatin 20 MG TAB PO SCH (08:50)
[2024-08-12] MEDS: Ondansetron ODT 4 MG TAB PO PRN (12:58)
[2024-08-12] MEDS ORDERED: Methocarbamol 500 MG TAB PO PRN (15:53)
[2024-08-12] MEDS: traMADol HCl 50 MG TAB PO PRN (18:05)
[2024-08-12] MEDS ORDERED: traMADol HCl 50 MG TAB PO SCH (21:00)
[2024-08-13 04:41] LABS: #Basophils Less than 0.03 10x3/uL (0.0-0.2); %Basophils 0.2 % (0.0-1.0); %Eosinophils 0.7 % (0.0-10.0); %Lymphocytes 19.8 % (21.0-51.0); %Monocytes 13.3 % (0.0-10.0); %Neutrophils 65.6 % (42.0-75.0); Hematocrit 28.7 % (36.0-47.0); Hemoglobin 9.5 g/dL (12.0-16.0); Mean Corpuscular HGB CONC 33.1 g/dL (32.0-36.0); Mean Corpuscular Hemoglobin 35.3 pg (27.0-31.0); Mean Corpuscular Volume 106.7 fL (78.0-98.0); Mean Platelet Volume 10.7 fL (7.4-10.4); Platelet Count 165 10x3/uL (130-400); RBC Distribution Width 13.8 % (11.5-14.5); Red Blood Cell (RBC) Count 2.69 mill/uL (4.20-5.40)
[2024-08-13 04:52] LABS: Anion Gap 13 mmol/L (10-20); BUN (Urea Nitrogen) 22 mg/dL (9.8-20.1); Calc. Creatinine Clearance 34 mL/min (70-130); Calcium 8.6 mg/dL (7.8-10.44); Carbon Dioxide 21 mmol/L (23-31); Chloride 106 mmol/L (98-107); Estimated GFR 45; Glucose 110 mg/dL (83-110); Potassium 4.5 mmol/L (3.5-5.1); Sodium 135 mmol/L (136-145)
[2024-08-13] MEDS ORDERED: Labetalol HCl 100 MG/20 ML VIAL SLOW IVP PRN (17:02)
[2024-08-13] MEDS: Lactated Ringer's 1,000 ML IV SCH (17:32)
[2024-08-13] MEDS ORDERED: Multivit, Therapeutic 1 TAB PO SCH (21:00)
[2024-08-13] MEDS: Bisacodyl 10 MG SUPP PR SCH (21:56)
[2024-08-13] MEDS: Senokot S 8.6-50 MG TAB PO SCH (21:58)
[2024-08-13] MEDS: Multivit, Therapeutic 1 TAB PO SCH (21:58)
[2024-08-14] MEDS: Polyethylene Glycol 3350 17 GM Packet PO SCH (08:37)
[2024-08-14] MEDS: Methylcellulose 500 MG TAB PO SCH (08:41)
[2024-08-14 10:00] LABS: Anion Gap 11 mmol/L (10-20); BUN (Urea Nitrogen) 14 mg/dL (9.8-20.1); Calc. Creatinine Clearance 37 mL/min (70-130); Calcium 8.7 mg/dL (7.8-10.44); Carbon Dioxide 23 mmol/L (23-31); Chloride 109 mmol/L (98-107); Estimated GFR 55; Glucose 112 mg/dL (83-110); Sodium 139 mmol/L (136-145)
[2024-08-14 10:01] LABS: #Basophils Less than 0.03 10x3/uL (0.0-0.2); %Basophils 0.3 % (0.0-1.0); %Eosinophils 2.6 % (0.0-10.0); %Lymphocytes 16.6 % (21.0-51.0); %Monocytes 10.1 % (0.0-10.0); Hematocrit 30.2 % (36.0-47.0); Hemoglobin 10.2 g/dL (12.0-16.0); Mean Corpuscular HGB CONC 33.8 g/dL (32.0-36.0); Mean Corpuscular Hemoglobin 34.8 pg (27.0-31.0); Mean Corpuscular Volume 103.1 fL (78.0-98.0); Mean Platelet Volume 10.8 fL (7.4-10.4); Platelet Count 176 10x3/uL (130-400); RBC Distribution Width 13.7 % (11.5-14.5); Red Blood Cell (RBC) Count 2.93 mill/uL (4.20-5.40)
[2024-08-14 10:40] VITALS: TEMP 98.6
[2024-08-14 13:10] VITALS: BP 145/74
== END 2024-08-14 22:00 | DRG 200 ==
LOC: ERS 17:32 → 2NO 21:34
PROVIDERS: ADMIT Specialist; ATTEND Specialist
DX: S27.0XXA Traumatic pneumothorax, initial encounter (principal); E87.1 Hypo-osmolality and hyponatremia; S22.41XA Multiple fractures of ribs, right side, initial encounter for closed fracture; S22.20XA Unspecified fracture of sternum, initial encounter for closed fracture; I50.32 Chronic diastolic (congestive) heart failure; F03.90 Unspecified dementia, unspecified severity, without behavioral disturbance, psychotic disturbance, mood disturbance, and anxiety; E78.5 Hyperlipidemia, unspecified; R77.8 Other specified abnormalities of plasma proteins; F32.A Depression, unspecified; I11.0 Hypertensive heart disease with heart failure; N18.30 Chronic kidney disease, stage 3 unspecified; R53.81 Other malaise; Z90.49 Acquired absence of other specified parts of digestive tract; Z98.890 Other specified postprocedural states; Z88.0 Allergy status to penicillin; Z88.2 Allergy status to sulfonamides; Z88.8 Allergy status to other drugs, medicaments and biological substances; Z79.899 Other long term (current) drug therapy; Z79.82 Long term (current) use of aspirin; W19.XXXA Unspecified fall, initial encounter
CPT/HCPCS: 36415; 51701; 70450; 71045; 71260; 72125; 74177; 80048; 80053; 81001; 82550; 83605; 83735; 83880; 84484; 85025; 85610; 85730; 93005; 93306; 94760; G0390; J1650; J7120; J7620; Q0162; Q9967